=== PATIENT | female | born 1985 | race Caucasian/White ===

== ENCOUNTER 2021-02-03 10:32 | Outpatient (CLI) | payer OTHER | END 2021-02-03 12:30 | disposition home or self-care (01) | LOC: PRENATAL 10:32 | PROVIDERS: ATTEND Obstetrics & Gynecology Maternal & Fetal Medicine | DX: O35.0XX1 Maternal care for (suspected) central nervous system malformation in fetus, fetus 1 (principal); O35.3XX1 Maternal care for (suspected) damage to fetus from viral disease in mother, fetus 1; O98.512 Other viral diseases complicating pregnancy, second trimester; O34.12 Maternal care for benign tumor of corpus uteri, second trimester; O10.012 Pre-existing essential hypertension complicating pregnancy, second trimester; Z36.89 Encounter for other specified antenatal screening; Z3A.27 27 weeks gestation of pregnancy ==

== ENCOUNTER 2021-03-19 08:40 | Outpatient (CLI) | payer OTHER | END 2021-03-19 09:30 | disposition home or self-care (01) | LOC: PRENATAL 08:40 | PROVIDERS: ATTEND Obstetrics & Gynecology Maternal & Fetal Medicine | DX: O26.843 Uterine size-date discrepancy, third trimester (principal); O35.0XX1 Maternal care for (suspected) central nervous system malformation in fetus, fetus 1; O10.013 Pre-existing essential hypertension complicating pregnancy, third trimester; O34.13 Maternal care for benign tumor of corpus uteri, third trimester; Z36.89 Encounter for other specified antenatal screening; Z3A.33 33 weeks gestation of pregnancy ==

== ENCOUNTER 2021-05-06 04:56 | Inpatient (IN) | payer OTHER ==
[~2021-05-06] VITALS: Ht 154.9 cm; Wt 2.7 kg
[2021-05-06] MEDS ORDERED: PRENATAL TABLE1 EAC1 PO (05:19)
[2021-05-06] MEDS ORDERED: ECOTRIN81 MG PO (05:20)
[2021-05-06] MEDS ORDERED: LABETALOL HCL100 MG PO (05:20)
== END 2021-05-09 14:12 | disposition home or self-care (01) | DRG 785 ==
LOC: OB/GYN 04:56 → LDR 04:56 → O/R 11:04 → OB/GYN 13:43
PROVIDERS: ADMIT Obstetrics & Gynecology; ATTEND Obstetrics & Gynecology
PROC: 0UB70ZZ Excision of Bilateral Fallopian Tubes, Open Approach (ICD-10-PCS; 2021-05-06)
PROC: 4A1HXFZ Monitoring of Products of Conception, Cardiac Rhythm, External Approach (ICD-10-PCS; 2021-05-06)
PROC: 10D00Z1 Extraction of Products of Conception, Low, Open Approach (ICD-10-PCS; principal; 2021-05-06 10:00)
DX: O34.211 Maternal care for low transverse scar from previous cesarean delivery (principal); Z30.2 Encounter for sterilization; O75.82 Onset (spontaneous) of labor after 37 completed weeks of gestation but before 39 completed weeks gestation, with delivery by (planned) cesarean section; O13.4 Gestational [pregnancy-induced] hypertension without significant proteinuria, complicating childbirth; O99.892 Other specified diseases and conditions complicating childbirth; N99.4 Postprocedural pelvic peritoneal adhesions; N73.6 Female pelvic peritoneal adhesions (postinfective); Z3A.38 38 weeks gestation of pregnancy; Z37.0 Single live birth